=== PATIENT | female | born 1955 | race Caucasian/White ===

== ENCOUNTER → 2016-10-24 | Outpatient (CLI) | payer BC ==
--- NOTE | 2016-10-25 10:50 | MM ---
Reason for exam: screening (asymptomatic). Last mammogram was performed 1 year and 10 months ago. History: Patient is postmenopausal. Took estrogen for 21 years beginning at age 30. Physical Findings: A clinical breast exam by your physician is recommended on an annual basis and results should be correlated with mammographic findings. MG Screening Mammo w CAD Bilateral CC and MLO view(s) were taken. Prior study comparison: December 29, 2014, mammogram. July 19, 2013, mammogram. There are scattered fibroglandular densities. No significant changes when compared with prior studies. ASSESSMENT: Negative, BI-RAD 1 RECOMMENDATION: Routine screening mammogram of both breasts in 1 year.
== END | disposition home or self-care (01) ==
LOC: RADMAMWWP 16:29
PROVIDERS: ATTEND Family Medicine
DX: Z12.31 Encounter for screening mammogram for malignant neoplasm of breast (principal)

== ENCOUNTER → 2016-11-19 | Outpatient (CLI) | payer BC ==
--- NOTE | 2016-11-19 14:30 | CTL ---
EXAMINATION TYPE: CT Low Dose Lung DATE OF EXAM ORDERED: 11/19/2016 12:21 PM HISTORY: . Lung cancer screening CT DLP: 93.[address] CTDI: 2.6 mGy Automated exposure control for dose reduction was used. SCREENING VISIT: Initial COMPARISON: None TECHNIQUE: Low dose computed tomography scan was performed through the chest at 1 mm thick sections a nd reconstructed images in the coronal plane at [address] DIAGNOSTIC QUALITY: Satisfactory FINDINGS: LUNG NODULES: There is a tiny 0.2 cm nodule in the periphery of the right upper lobe. Series 9 images 77. LUNGS: COPD: Severity: None Fibrosis: Severity: None Lymph nodes: None Other findings: None RIGHT PLEURAL SPACE: Effusion: None Calcification: None Thickening: None Pneumothorax: None LEFT PLEURAL SPACE: Effusion: None Calcification: None Thickening: None Pneumothorax: None HEART: Heart Size: Normal Coronary calcification: None Pericardial effusion: None OTHER FINDINGS: Upper abdomen: Normal Bony thorax: Normal Supraclavicular region: Normal Other: The ascending thoracic aorta at the level of main pulmonary artery is 3.1 cm. The main pulmona ry bifurcation is 2.1 cm. IMPRESSION: Benign findings FOLLOW UP CT CHEST RECOMMENDATION: Screening chest for neoplasm can be performed as clinically indica ron. CT LUNG RAD: Lung-Rad 2 Benign Appearance or Behavior
== END | disposition home or self-care (01) ==
LOC: RADCTMAIN 11:46
PROVIDERS: ATTEND Family Medicine
DX: Z12.2 Encounter for screening for malignant neoplasm of respiratory organs (principal); Z87.891 Personal history of nicotine dependence

== ENCOUNTER 2017-09-22 07:52 | Day surgery (SDC) | payer BC ==
[2017-09-19 09:39] VITALS: BMI 27.4
[~2017-09-22 07:52] MED LIST: LACTATED RINGERS 1,000 ML IV SCH
[2017-09-22 08:16] VITALS: RESP 16; TEMP 97.7
[2017-09-22] MEDS ORDERED: LIDOCAINE 1% 20 ML VIAL (10MG/ML) FOR IV START INTRADERMA ONE (08:20)
[2017-09-22] MEDS ORDERED: PROPOFOL 10 MG/ML 20 ML VIAL IV ONE (09:15)
[2017-09-22] MEDS ORDERED: LIDOCAINE 1% INJ 10MG/ML (20 ML MDV) ONE (09:15)
--- NOTE | 2017-09-22 09:31 | P.GSHP ---
History of Present Illness H&P Date: 09/22/17 Chief Complaint: Screening colonoscopy This 62-year-old female referred from Dr. Milagro Small and Santos Cardenas PA-C. Patient presents today for screening colonoscopy. She denies a significant GI placed. Her last colonoscopy was over 10 years ago and was normal. - Constitutional Constitutional: Reports as per HPI Past Medical History Past Medical History: Cancer, Fibromyalgia, Hyperlipidemia, Thyroid Disorder Additional Past Medical History / Comment(s): hx melanoma lt axillary area History of Any Multi-Drug Resistant Organisms: None Reported Past Surgical History: Hysterectomy, Tonsillectomy Additional Past Surgical History / Comment(s): removal of melanoma Past Anesthesia/Blood Transfusion Reactions: No Reported Reaction Smoking Status: Current every day smoker - Past Family History Mother Family Medical History: Cancer Additional Family Medical History / Comment(s): ovarian cancer Father Family Medical History: Cancer Additional Family Medical History / Comment(s): prostate cancer Medications and Allergies Home Medications Medication Instructions Recorded Confirmed Type Ibuprofen [Motrin] 600 mg PO Q6HR PRN #20 tab 08/01/16 09/19/17 Rx Levothyroxine Sodium [Synthroid] 75 mcg PO DAILY 08/01/16 09/22/17 History Simvastatin [Zocor] 40 mg PO HS 08/01/16 09/22/17 History Venlafaxine HCl [Effexor XR] 225 mg PO DAILY 08/01/16 09/22/17 History Allergies Allergy/AdvReac Type Severity Reaction Status Date / Time bupropion [From Wellbutrin] Allergy Rash/Hives Verified 09/19/17 09:23 control Allergy Unknown Uncoded 09/19/17 09:23 Surgical - Exam Vital Signs Temp Pulse Resp BP Pulse Ox 97.7 F 78 16 126/75 98 09/22/17 08:15 09/22/17 08:15 09/22/17 08:15 09/22/17 08:15 09/22/17 08:15 - General well developed, no distress - Eyes PERRL - ENT normal pinna - Neck no masses - Respiratory normal expansion - Cardiovascular Rhythm: regular - Abdomen Abdomen: soft, non tender Assessment and Plan Assessment: We'll perform screening colonoscopy.
--- NOTE | 2017-09-22 09:47 | P.OP ---
Date of Procedure: 09/22/17 Preoperative Diagnosis: Screening colonoscopy Postoperative Diagnosis: Normal colonoscopy Procedure(s) Performed: Colonoscopy Anesthesia: MAC Surgeon: Nahun Valencia Pathology: none sent Condition: stable Disposition: PACU Description of Procedure: PROCEDURE: The patient was placed on the endoscopy table in the lateral position. Digital rectal examination was performed which revealed no abnormalities. Flexible colonoscope was then placed in the patient's anus and passed throughout the entire colon. The ileocecal valve was visualized. The cecum, ascending, transverse, descending and sigmoid colon were normal. The rectum was normal as well. There were no masses, polyps or diverticula noted in the entire colon. SUMMARY OF FINDINGS: Normal colonoscopy.
[2017-09-22 10:09] VITALS: BP 139/70; PULSE 79
== END 2017-09-22 10:26 | disposition home or self-care (01) ==
LOC: ORWHC2ENDO 07:52
PROVIDERS: ATTEND Surgery
DX: Z12.11 Encounter for screening for malignant neoplasm of colon (principal); Z85.820 Personal history of malignant melanoma of skin; M79.7 Fibromyalgia; E78.5 Hyperlipidemia, unspecified; E07.9 Disorder of thyroid, unspecified; M19.90 Unspecified osteoarthritis, unspecified site; Z79.899 Other long term (current) drug therapy; Z79.890 Hormone replacement therapy; Z88.8 Allergy status to other drugs, medicaments and biological substances; F17.210 Nicotine dependence, cigarettes, uncomplicated
CPT/HCPCS: J2001; J2704; G0121; 45378

== ENCOUNTER → 2018-04-23 | Outpatient (CLI) | payer BC ==
--- NOTE | 2018-04-23 12:18 | MM ---
Reason for exam: clinical finding. Last mammogram was performed 1 year and 6 months ago. History: Patient is postmenopausal and has history of other cancer at age 61. Took estrogen for 21 years beginning at age 30. Physical Findings: Nurse did not find any significant physical abnormalities on exam. MG 3D Diag Mammo W/Cad LYNDSEY Bilateral CC and MLO view(s) were taken. Prior study comparison: October 24, 2016, bilateral MG screening mammo w CAD. December 29, 2014, mammogram. The breast tissue is heterogeneously dense. This may lower the sensitivity of mammography. No suspicious anormality. ASSESSMENT: Incomplete: need additional imaging evaluation, BI-RAD 0 RECOMMENDATION: Ultrasound of the left breast.
--- NOTE | 2018-04-23 12:22 | USB ---
Reason for exam: clinical finding. History: Patient is postmenopausal and has history of other cancer at age 61. Took estrogen for 21 years beginning at age 30. US Breast Limited LT Technologist: Sandra Henao RT (R)(M) Left limited breast ultrasound including focal area of concern, retroareolar and axilla demonstrates no suspicious findings. No cystics or solid lesions seen. These results were verbally communicated with the patient and result sheet given to the patient on 04/23/18. ASSESSMENT: Negative, BI-RAD 1 RECOMMENDATION: Routine screening mammogram of both breasts in 1 year.
== END | disposition home or self-care (01) ==
LOC: RADMAMWWP 09:24
PROVIDERS: ATTEND Family Medicine
DX: N64.4 Mastodynia (principal)
CPT/HCPCS: 77062; 77066

== ENCOUNTER → 2019-07-08 | Outpatient (CLI) | payer BC ==
--- NOTE | 2019-07-09 13:55 | MM ---
Reason for exam: screening (asymptomatic). Last mammogram was performed 1 year and 2 months ago. History: Patient is postmenopausal and has history of other cancer at age 61. Took estrogen for 21 years beginning at age 30. Physical Findings: A clinical breast exam by your physician is recommended on an annual basis and results should be correlated with mammographic findings. MG Screening Mammo w CAD Bilateral CC and MLO view(s) were taken. Prior study comparison: April 23, 2018, bilateral MG 3d diag mammo w/cad LYNDSEY. October 24, 2016, bilateral MG screening mammo w CAD. There are scattered fibroglandular densities. Focal asymmetry in the right and left breast. No significant changes when compared with prior studies. ASSESSMENT: Benign, BI-RAD 2 RECOMMENDATION: Routine screening mammogram of both breasts in 1 year.
== END | disposition home or self-care (01) ==
LOC: RADMAMWWP 13:15
PROVIDERS: ATTEND Family Medicine
DX: Z12.31 Encounter for screening mammogram for malignant neoplasm of breast (principal)
CPT/HCPCS: 77067

== ENCOUNTER → 2020-12-13 | Outpatient (CLI) | payer BC ==
--- NOTE | 2020-12-15 12:01 | MM ---
Reason for exam: screening (asymptomatic). Last mammogram was performed 1 year and 5 months ago. History: Patient is postmenopausal and has history of other cancer at age 61. Took estrogen for 21 years beginning at age 30. Physical Findings: A clinical breast exam by your physician is recommended on an annual basis and results should be correlated with mammographic findings. MG Screening Mammo w CAD Bilateral CC and MLO view(s) were taken. Prior study comparison: July 08, 2019, bilateral MG screening mammo w CAD. April 23, 2018, bilateral MG 3d diag mammo w/cad LYNDSEY. There are scattered fibroglandular densities. Global asymmetry left upper outer quadrant is unchanged. No significant changes when compared with prior studies. ASSESSMENT: Negative, BI-RAD 1 RECOMMENDATION: Routine screening mammogram of both breasts in 1 year.
== END | disposition home or self-care (01) ==
LOC: RADMAMWWP 13:01
PROVIDERS: ATTEND Family Medicine
DX: Z12.31 Encounter for screening mammogram for malignant neoplasm of breast (principal); Z78.0 Asymptomatic menopausal state
CPT/HCPCS: 77067

== ENCOUNTER → 2020-12-25 | Outpatient (CLI) | payer BC ==
--- NOTE | 2020-12-25 16:24 | CTL ---
EXAMINATION TYPE: CT Low Dose Lung DATE OF EXAM ORDERED: 12/25/2020 HISTORY: Long-term tobacco use. Lung cancer screening CT DLP: 91.[address] CTDI: 206 mGy Automated exposure control for dose reduction was used. SCREENING VISIT: First study after baseline COMPARISON: Prior baseline study November 19, 2016 TECHNIQUE: Low dose computed tomography scan was performed through the chest at 1 mm thick sections a nd reconstructed images in the coronal plane at [address] DIAGNOSTIC QUALITY: Satisfactory FINDINGS: LUNG NODULES: None. Occasional scattered micronodule. No suspicious greater than 4 mm pulmonary nodules. LUNGS: COPD: Severity: Mild to moderate Fibrosis: Severity: Mild biapical Lymph nodes: None Other findings: None RIGHT PLEURAL SPACE: Effusion: None Calcification: None Thickening: None Pneumothorax: None LEFT PLEURAL SPACE: Effusion: None Calcification: None Thickening: None Pneumothorax: None HEART: Heart Size: Normal Coronary calcification: None Pericardial effusion: Trace anterior right aspect OTHER FINDINGS: Upper abdomen: None. Bony thorax: None Supraclavicular region: None Other: Stable scattered fibroglandular tissue throughout both breasts. IMPRESSION: Mild to moderate emphysematous change with occasional scattered micronodule. No significa nt pulmonary nodules. No significant change from prior. CT LUNG RAD AND CT CHEST RECOMMENDATION: Lung-Rad 2 Benign Appearance or Behavior: Continue annual sc reening with LDCT in 12 months. S Modifier (other clinically significant findings): None
== END | disposition home or self-care (01) ==
LOC: RADCTMAIN 15:17
PROVIDERS: ATTEND Nurse Practitioner Family
DX: Z12.2 Encounter for screening for malignant neoplasm of respiratory organs (principal); J43.9 Emphysema, unspecified; Z87.891 Personal history of nicotine dependence
CPT/HCPCS: 71271

== ENCOUNTER → 2021-12-17 | Outpatient (CLI) | payer MEDICARE, BC ==
--- NOTE | 2021-12-17 13:42 | BD ---
EXAMINATION TYPE: Axial Bone Density DATE OF EXAM: 12/17/2021 COMPARISON: NONE CLINICAL HISTORY: 66 years year old Female. ICD-10 CODE: Z78.0 POST MENOPUASAL WITHOUT HRT Height: 63.5 Weight: 159 FRAX RISK QUESTIONS: Secondary Osteoporosis: YES 3. Menopause before 45: YES Current Tobacco Use: YES RISK FACTORS HISTORY OF: Active: YES Postmenopausal woman: YES, AT AGE 30 TOTAL HYST Take estrogen and/or progesterone medications: YES, FOR ABOUT 20 YRS, NONE NOW Hyperparathyroidism: NO Adrenal Insufficiency: NO MEDICATIONS: Thyroid Medications: YES, SYNTHROID FOR ABOUT 5 YRS Additional Medications: VENLAFAXINE, STATIN FOR CHOLESTEROL, Additional History: ANXIETY, CHOLESTEROL, THYROID, EXAM MEASUREMENTS: Bone mineral densitometry was performed using the [employer] System. Bone mineral density as measured about the Lumbar spine is: ----- L1-L4(G/cm2): 1.202 T Score Values are as follows: ----- L1: -0.8 ----- L2: -0.4 ----- L3: 0.8 ----- L4: 0.8 ----- L1-L4: 0.2 Bone mineral density FIRST DEXA SCAN AT [facility] Bone mineral density about the R hip (g/cm2): 0.824 Bone mineral density about the L hip (g/cm2): 0.864 T Score values are as follows: -----R Neck: -1.2 -----L Neck: -1.3 -----R Total: -1.5 -----L Total: -1.1 Bone mineral density FIRST BONE DENSITY AT [facility] FRAX%s: The graph provided illustrates a 8.6% chance for a major osteoporotic fx and a 1.4% chance fo r the hips probability for fx in 10 years time. IMPRESSION: Osteopenia NOTE: T-SCORE=SD OF THE YOUNG ADULT MEAN.
--- NOTE | 2021-12-18 11:37 | MM ---
Reason for exam: screening (asymptomatic). Last mammogram was performed 1 year ago. History: Patient is postmenopausal and has history of other cancer at age 61. Took estrogen for 21 years beginning at age 30. Physical Findings: A clinical breast exam by your physician is recommended on an annual basis and results should be correlated with mammographic findings. MG 3D Screening Mammo W/Cad Bilateral CC and MLO view(s) were taken. Prior study comparison: December 13, 2020, bilateral MG screening mammo w CAD. July 08, 2019, bilateral MG screening mammo w CAD. There are scattered fibroglandular densities. There is no discrete abnormality. No significant changes when compared with prior studies. ASSESSMENT: Negative, BI-RAD 1 RECOMMENDATION: Routine screening mammogram of both breasts in 1 year.
== END | disposition home or self-care (01) ==
LOC: RADMAMWWP 08:45
PROVIDERS: ATTEND Family Medicine
DX: Z12.31 Encounter for screening mammogram for malignant neoplasm of breast (principal); M85.852 Other specified disorders of bone density and structure, left thigh; M85.851 Other specified disorders of bone density and structure, right thigh; Z78.0 Asymptomatic menopausal state
CPT/HCPCS: 77063; 77067; 77080

== ENCOUNTER → 2022-02-26 | Outpatient (CLI) | payer MEDICARE, BC ==
--- NOTE | 2022-02-26 15:39 | CA ---
Exercise Stress Test Report Name: Anay Perez Exam Date: 02/26/2022 09:16 Exam Location: [place] Stress Ht (in): 64 Wt (lb): 160 BSA: 1.78 Ordering Phys: Milagro Small DO Referring Phys: JATIN, Technologist: Syed Guillen Age: 66 Gender: F : 1955 Procedure CPT: Indications: R79.82 ELEVATED C-REACTIVE PROTEIN ICD-10 Codes: Patient History: Medications: Meds past 24 hrs: Pretest Chest Pain: STRESS TEST Telly Protocol Exercise Duration (min:sec): 09:[address] Depressions (mm): Angina Score: Ramos Score: Resting HR (bpm): 83 Peak HR (bpm): 145 Resting BP (mmHg): 148 / 88 Peak BP (mmHg): 198 / 81 MPHR: 155 Target HR: 132 % MPHR: 94 METS: 10.3 Total Dose: Peak Dose: Atropine: Double Product: 53340 BP Response: Stress Termination: Reached target heart rate Stress Symptoms: NO SYMPTOMS Stress Summary: ECG ANALYSIS Resting ECG: Stress ECG: CONCLUSIONS Normal twelve-lead EKG at baseline But excess capacity and a Telly protocol, 9 minutes Peak heart rate 145 with a minute, peak blood pressure 98/81 mmHg No ECG and see ischemia No arrhythmias Impression normal stress test Dr. Pranav England MD (Electronically Signed) Final Date: 26 February 2022 15:38
== END | disposition home or self-care (01) ==
LOC: RADNMMAIN 08:40
PROVIDERS: ATTEND Family Medicine
DX: R79.82 Elevated C-reactive protein (CRP) (principal); R07.9 Chest pain, unspecified
CPT/HCPCS: 93017

== ENCOUNTER → 2023-02-05 | Outpatient (CLI) | payer MEDICARE, BC ==
--- NOTE | 2023-02-05 14:15 | CTL ---
EXAMINATION TYPE: CT Low Dose Lung DATE OF EXAM ORDERED: 02/05/2023 HISTORY: Long-term tobacco use. Lung cancer screening CT DLP: 116.[address] CTDI: 3.0 mGy Automated exposure control for dose reduction was used. SCREENING VISIT: Second after baseline COMPARISON: Prior studies 2020 and 2016 TECHNIQUE: Low dose computed tomography scan was performed through the chest at 1 mm thick sections a nd reconstructed images in multiple planes at 1 mm and [address] DIAGNOSTIC QUALITY: Satisfactory FINDINGS: LUNG NODULES: Present, detailed below: Occasional scattered micronodule. No suspicious new or enlarging greater than 5 mm pulmonary nodules. LUNGS: COPD: Severity: Mild Fibrosis: Severity: Mild biapical Lymph nodes: Scattered prominent borderline enlarged lymph nodes throughout the mediastinum are not s ignificantly changed from prior Other findings: None RIGHT PLEURAL SPACE: Effusion: None Calcification: None Thickening: None Pneumothorax: None LEFT PLEURAL SPACE: Effusion: None Calcification: None Thickening: None Pneumothorax: None HEART: Heart Size: Normal Coronary calcification: None Pericardial effusion: Trace anterior right aspect OTHER FINDINGS: Upper abdomen: None. Bony thorax: None Supraclavicular region: None Other: None. IMPRESSION: Mild emphysematous change with stable scattered micronodule. No new or enlarging greater than 5 mm pulmonary nodules. No significant change from prior. CT LUNG RAD AND CT CHEST RECOMMENDATION: Lung-Rad 2 Benign Appearance or Behavior: Continue annual sc reening with LDCT in 12 months. S Modifier (other clinically significant findings): None
== END | disposition home or self-care (01) ==
LOC: RADCTMAIN 12:14
PROVIDERS: ATTEND Family Medicine
DX: Z12.2 Encounter for screening for malignant neoplasm of respiratory organs (principal); J43.9 Emphysema, unspecified; R91.8 Other nonspecific abnormal finding of lung field; Z87.891 Personal history of nicotine dependence
CPT/HCPCS: 71271

== ENCOUNTER → 2023-02-27 | Outpatient (CLI) | payer MEDICARE, BC ==
--- NOTE | 2023-02-28 08:32 | MM ---
Reason for Exam: Screening (asymptomatic). Last mammogram was performed 1 year(s) and 2 month(s) ago. Patient History: Menarche at age 14. First Full-Term at age 23. Left ovary removed at age 30. Right ovary removed at age 30. Hysterectomy at age 30. Postmenopausal. Other cancer, age 61. Estrogen for 21 years from age 30 until age 51. Mother had ovarian cancer at or over age 50. Risk Values: Monica 5 year model risk: 1.5%. NCI Lifetime model risk: 5.4%. Prior Study Comparison: 10/24/2016 Bilateral Screening Mammogram, [facility]. 04/23/2018 Bilateral Diagnostic Mammogram, [facility]. 07/08/2019 Bilateral Screening Mammogram, [facility]. 12/13/2020 Bilateral Screening Mammogram, [facility]. 12/17/2021 Bilateral Screening Mammogram, [facility]. Tissue Density: The breast tissue is heterogeneously dense. This may lower the sensitivity of mammography. Findings: Analyzed By CAD. There is no suspicious group of microcalcifications or new suspicious mass in either breast. Overall Assessment: Benign, BI-RAD 2 Management: Screening Mammogram of both breasts in 1 year. . Patient should continue monthly self-breast exams. A clinical breast exam by your physician is recommended on an annual basis. This exam should not preclude additional follow-up of suspicious palpable abnormalities. Note on Monica scores and lifetime risk: 1. A Monica score greater than 3% is considered moderate risk. If this is the case, consider specialist referral to assess eligibility for a risk reducing agent. 2. If overall lifetime risk for the development of breast cancer is 20% or higher, the patient may qualify for future screening with alternating mammogram and breast MRI. Electronically signed and approved by: Pascual Villalobos M.D. Radiologis
== END | disposition home or self-care (01) ==
LOC: RADMAMWWP 09:43
PROVIDERS: ATTEND Family Medicine
DX: Z12.31 Encounter for screening mammogram for malignant neoplasm of breast (principal); Z80.3 Family history of malignant neoplasm of breast; Z78.0 Asymptomatic menopausal state
CPT/HCPCS: 77063; 77067

== ENCOUNTER → 2024-03-03 | Outpatient (CLI) | payer MEDICARE, BC ==
--- NOTE | 2024-03-03 13:35 | CTL ---
EXAMINATION TYPE: CT Low Dose Lung DATE OF EXAM ORDERED: 03/03/2024 HISTORY: 68-year-old female Z1 2.31, F1 7.210, current smoker with 49 pack-year history. Lung cancer screening CT DLP: 92.[address] CTDI: 2.57 mGy Automated exposure control for dose reduction was used. SCREENING VISIT: Annual follow-up COMPARISON: 02/05/2023 TECHNIQUE: Low dose computed tomography scan was performed through the chest at 1 mm thick sections a nd reconstructed images in multiple planes at 1 mm and [address] DIAGNOSTIC QUALITY: Satisfactory FINDINGS: Heart is normal size without pericardial effusion. Aorta normal caliber with mild atherosclerotic calcifications and conventional arch vessel branching anatomy. A few prominent lymph nodes, lower right paratracheal measuring 9 mm and AP window measuring 7 mm are stable stable to slightly smaller suggesting a benign etiology. No thoracic lymphadenopathy by size criteria. Mild diffuse bronchial wall thickening. Mild emphysematous change. Minimal biapical pleural parenchym al scarring. * 7 mm subpleural pulmonary nodule lateral right base, axial image 255 is unchanged. * 5 mm subpleural pulmonary nodule anterior right midlung, axial image 181 is unchanged. * 5 mm lateral right lower lobe pulmonary nodule, axial image 220 is unchanged. No consolidation or pleural effusion. Visualized upper abdomen shows no gross abnormality. Bones: Scattered mild degenerative disc disease lower thoracic spine. Accentuated lower thoracic kyph osis. IMPRESSION: 1. Lung RADS 2, benign. A few pulmonary nodules measuring up to 7 mm remain unchanged. 2. COPD with mild emphysema. Recommend smoking cessation. CT LUNG RAD AND CT CHEST RECOMMENDATION: Lung-Rad 2 Benign Appearance or Behavior: Continue annual sc reening with LDCT in 12 months. S Modifier (other clinically significant findings): None
== END | disposition home or self-care (01) ==
LOC: RADCTMAIN 11:39
PROVIDERS: ATTEND Family Medicine
DX: Z12.31 Encounter for screening mammogram for malignant neoplasm of breast (principal); F17.210 Nicotine dependence, cigarettes, uncomplicated; Z12.2 Encounter for screening for malignant neoplasm of respiratory organs; J43.9 Emphysema, unspecified
CPT/HCPCS: 71271

== ENCOUNTER → 2024-03-03 | Outpatient (CLI) | payer MEDICARE, BC ==
--- NOTE | 2024-03-03 13:19 | BD ---
EXAMINATION TYPE: Axial Bone Density DATE OF EXAM: 03/03/2024 CLINICAL HISTORY: 68 years old Female. ICD-10 CODE: Z78.0 ASYMPTOMATIC MENOPAUSAL Height: 5 ft 4 1/2 in Weight: 174 FRAX RISK QUESTIONS: Alcohol (3 or more units per day): no Family History (Parent hip fracture): no Glucocorticoids (More than 3mos): no (Ex: prednisone, prednisolone, methylprednisolone, dexamethasone, and hydrocortisone). History of Fracture in Adulthood: no Secondary Osteoporosis: 1. Type 1 Diabetes: no 2. Hyperthyroidism: no 3. Menopause before 45: yes 4. Malnutrition: no 5. Chronic liver disease: no Rheumatoid Arthritis: no Current Tobacco Use: no RISK FACTORS HISTORY OF: Surgery to Spine/Hip(right/left)/Wrist (right/left): no MEDICATIONS: Thyroid Medications: yes Which medication: levothyroxine How Lon years Osteoporosis Medications: none EXAM MEASUREMENTS: Bone mineral densitometry was performed using the [employer] System. Bone mineral density as measured about the Lumbar spine is: ----- L1-L4(G/cm2): 1.251 T Score Values are as follows: ----- L1: -0.7 ----- L2: 0.1 ----- L3: 1.1 ----- L4: 1.5 ----- L1-L4: 0.6 Z Score Values are as follows: ----- L1: 0.4 ----- L2: 1.3 ----- L3: 2.3 ----- L4: 2.7 ----- L1-L4: 1.8 Bone mineral density has: increased 4.1 % since study of: 2021 Bone mineral density about the R hip (g/cm2): 0.839 Bone mineral density about the L hip (g/cm2): 0.825 T Score values are as follows: -----R Neck: -1.4 -----L Neck: -1.5 -----R Total: -1.3 -----L Total: -1.0 Z Score values are as follows: -----R Neck: -0.1 -----L Neck: -0.2 -----R Total: -0.3 -----L Total: 0.0 Bone mineral density has: increased 1.8 % since study of: 2021 FRAX%s: The graph provided illustrates a 9.4 % chance for a major osteoporotic fx and a 1.2 % chance for the hips probability for fx in 10 years time. IMPRESSION: Normal (Values between +1 and -1 indicate normal bone mass). Consider repeating this study in 5 year s or sooner if there is some new clinical indication. NOTE: T-SCORE=SD OF THE YOUNG ADULT MEAN.
== END | disposition home or self-care (01) ==
LOC: RADMAMWWP 10:53
PROVIDERS: ATTEND Family Medicine
DX: Z12.31 Encounter for screening mammogram for malignant neoplasm of breast (principal); Z78.0 Asymptomatic menopausal state
CPT/HCPCS: 77063; 77067; 77080

== ENCOUNTER → 2024-05-17 | Outpatient (CLI) | payer MEDICARE ==
[2024-05-17 12:14] LABS: African American GFR (CKD) 90 (>60 ml/min/1.73 sqM); Blood Urea Nitrogen 14 mg/dL (7-17); Non-African American GFR(CKD) 78 (>60 ml/min/1.73 sqM)
--- NOTE | 2024-05-17 12:42 | CT ---
EXAMINATION TYPE: CT abdomen w con CT DLP: 868.6 mGycm, Automated exposure control for dose reduction was used. DATE OF EXAM: 05/17/2024 12:34 PM COMPARISON: None CLINICAL INDICATION: Female, 69 years old with history of R10.84 GENERALIZED ABDOMINAL PAIN; epigastr ic pain, bloating TECHNIQUE: Axial CT abdomen w con;Sagittal and coronal reformats were created on a separate workstat ion. Contrast used:100 mL of Isovue 300 with IV Contrast, (none if empty) Oral contrast used: with Oral Contrast (none if empty) FINDINGS: LOWER CHEST: Unremarkable ABDOMEN LIVER: Unremarkable GALLBLADDER AND BILE DUCTS: Decompressed gallbladder. PANCREAS: Unremarkable. SPLEEN: Unremarkable. ADRENAL GLANDS: Unremarkable. KIDNEYS AND URETERS: No evidence of hydronephrosis or renal calculus. The ureters are unremarkable. STOMACH AND BOWEL: No evidence of bowel obstruction. Appendix is normal. Moderate amount stool in the right colon. PERITONEUM/RETROPERITONEUM: No evidence of pneumoperitoneum or free fluid. VASCULATURE: Mild atherosclerotic calcifications are present throughout the abdominal aorta and its b ranches. No evidence of aortic aneurysm. MUSCULOSKELETAL: No acute osseous abnormalities. Mild disc degeneration changes are present throughou t the thoracolumbar spine. LYMPH NODES: No gross evidence for lymphadenopathy. SOFT TISSUE/ABDOMINAL WALL: Unremarkable IMPRESSION: 1. No evidence for acute process. 2. Mild atherosclerosis. 3. Moderate amount stool in the right colon.
== END | disposition home or self-care (01) ==
LOC: RADCTMAIN 11:30
PROVIDERS: ATTEND Family Medicine
DX: R10.84 Generalized abdominal pain
CPT/HCPCS: 36415; 74160; 82565; 84520

== ENCOUNTER → 2025-03-16 | Outpatient (CLI) | payer MEDICARE ==
--- NOTE | 2025-03-16 13:41 | CTL ---
EXAMINATION TYPE: CT Low Dose Lung DATE OF EXAM: 03/03/2024. COMPARISON: 03/03/2024 CLINICAL INDICATION: Female, 69 years old with history of F17.201 nicotine dependence; Former smoker quit 2022, was 1 ppd x 45 years no concerns noted, history of tobacco use. TECHNIQUE: Multiple axial non-contrast scans were obtained from approximately the lung apices through the upper abdomen. Coronal and sagittal reformatted images were obtained. Low dose technique was uti lized. MIP were created on a separate workstation and submitted for review. CT DLP: 63 mGycm, Automated exposure control for dose reduction was used. CT Contrast: Contrast used: None Oral contrast used: None FINDINGS: Lack of intravenous contrast and low dose technique limits the evaluation of the vascular and soft ti ssue structures. LUNGS: No evidence of pulmonary fibrosis. No evidence of focal consolidation, pneumothorax or pleural effusion. Centrilobular emphysema changes. Nodules: RUL: Atelectasis and/or nodule series 3 image 174 measuring 4 mm is stable. RML: None RLL: 4 mm series 3 image 197, stable. NAHED: groundglass nodule series 3 image 50 measuring 8 mm is stable. LLL: None. AIRWAY: Patent and unremarkable. HEART: Size within normal limits. Mild coronary artery calcifications present. MEDIASTINUM: No gross evidence of adenopathy. VASCULATURE: Atherosclerotic calcifications are present throughout the aorta and its branches. MUSCULOSKELETAL: Mild disc degeneration changes are present throughout the thoracolumbar spine. SOFT TISSUES/LYMPH NODES: Unremarkable. LOWER NECK: No significant findings. UPPER ABDOMEN: No significant findings. IMPRESSION: 1. Stable pulmonary nodules. No new or enlarging pulmonary nodules. No clinically significant pulmona ry nodules. 2. Mild emphysema. CT LUNG RAD AND CT CHEST RECOMMENDATION: Lung-Rad 2 Benign Appearance or Behavior: Continue annual sc reening with LDCT in 12 months. S Modifier (other clinically significant findings): None Recommend smoking cessation (if current smoker), or continuation of smoking cessation (if prior smoke r). Annual screening for lung cancer with low-dose computed tomography is recommended in adults ages 55 to 77 years who have a 30 pack-year smoking history and currently smoke or have quit within the pa st 15 years. Screening should be discontinued once a person has not smoked for 15 years or develops a health problem that substantially limits life expectancy or the ability or willingness to have curat nola lung surgery. Lung rads 2021 [email or web address] [email or web address], , 03/16/2025 1:38 PM
== END | disposition home or self-care (01) ==
LOC: RADCTMAIN 12:28
PROVIDERS: ATTEND Family Medicine
DX: Z12.2 Encounter for screening for malignant neoplasm of respiratory organs (principal); J43.2 Centrilobular emphysema; R91.8 Other nonspecific abnormal finding of lung field; F17.201 Nicotine dependence, unspecified, in remission
CPT/HCPCS: 71271